=== PATIENT | female | born 1955 | race African-American/Black ===

== ENCOUNTER 2016-12-16 08:53 | Outpatient (CLI) | payer BC | END 2016-12-16 08:54 | disposition home or self-care (01) | LOC: NAV EKG 08:53 | PROVIDERS: ATTEND Internal Medicine | DX: I10 Essential (primary) hypertension (principal); R63.4 Abnormal weight loss | CPT/HCPCS: 93005 ==

== ENCOUNTER 2023-04-21 09:10 | Outpatient (CLI) | payer MEDICARE | END 2023-04-21 09:11 | disposition home or self-care (01) | LOC: NAV RAD 09:10 | PROVIDERS: ATTEND Family Medicine | DX: R76.11 Nonspecific reaction to tuberculin skin test without active tuberculosis (principal) | CPT/HCPCS: 71046 ==

== ENCOUNTER 2024-02-18 16:13 | Emergency (ER) | payer MEDICARE ==
[2024-02-18] MEDS ORDERED: Sodium Chloride 0.9% 1,000 ML ONE (16:42)
[2024-02-18] MEDS ORDERED: Metoclopramide HCl 10 MG (2 mL) VIAL ONE ×2 (16:42→19:13)
[2024-02-18] MEDS ORDERED: diphenhydrAMINE 50 MG/ML VIAL ONE (16:42)
[2024-02-18 16:58] LABS: #Lymphocytes 0.9 thou/uL (1.20-3.40); #Monocytes 0.4 thou/uL (0.11-0.59); %Basophils 0.5 % (0.0-1.0); %Eosinophils 0.1 % (0.0-10.0); %Lymphocytes 9.2 % (21.0-51.0); %Neutrophils 86.2 % (42.0-75.0); Hematocrit 45.6 % (36.0-47.0); Hemoglobin 13.3 g/dL (12.0-16.0); Mean Corpuscular HGB CONC 29.1 g/dL (32.0-36.0); Mean Corpuscular Hemoglobin 25.4 pg (27.0-31.0); Mean Corpuscular Volume 87.1 fl (78.0-98.0); Mean Platelet Volume 7.8 fL (7.4-10.4); Platelet Count 201 10x3/uL (130-400); RBC Distribution Width 14.3 % (11.5-14.5); Red Blood Cell (RBC) Count 5.24 mill/uL (4.20-5.40); White Blood Cell (WBC) Count 9.3 10x3/uL (4.8-10.8)
[2024-02-18 17:12] LABS: ALT (SGPT) 13 U/L (8-55); AST (SGOT) 21 U/L (5-34); Albumin 4.4 g/dL (3.4-4.8); Alkaline Phosphatase 71 U/L (40-110); Anion Gap 19 mmol/L (10-20); BUN (Urea Nitrogen) 12 mg/dL (9.8-20.1); Bilirubin, Total 0.3 mg/dL (0.2-1.2); Calc. Creatinine Clearance 0 mL/min (70-130); Calcium 9.6 mg/dL (7.8-10.44); Carbon Dioxide 23 mmol/L (23-31); Chloride 107 mmol/L (98-107); Estimated GFR 69; Globulin 3.6 g/dL (2.4-3.5); Glucose 73 mg/dL (80-115); Potassium 3.9 mmol/L (3.5-5.1); Sodium 145 mmol/L (136-145)
[2024-02-18 17:13] LABS: Troponin I Less than 0.010 ng/mL (< 0.028)
[2024-02-18] MEDS ORDERED: Sodium Chloride 0.9% 100 ML ONE (19:15)
[2024-02-18] MEDS ORDERED: Ketorolac Tromethamine 30 MG (1 mL) VIAL ONE (20:01)
[2024-02-18] MEDS ORDERED: methylPREDNISolone Sod Succ/PF 125 MG/2 ML VIAL ONE (20:01)
[2024-02-18] MEDS ORDERED: Magnesium 2 GM/50 ML BAG (IN WATER) ONE (20:02)
== END 2024-02-18 20:55 | disposition home or self-care (01) ==
LOC: NAV ERS 16:13
DX: G43.919 Migraine, unspecified, intractable, without status migrainosus (principal); I10 Essential (primary) hypertension
CPT/HCPCS: 80053; 84484; 85025; 93005; 96365; 96366; 96367; 96375; J1200; J1885; J2765; J2930; J3475; J7050